=== PATIENT | female | born 1995 | race Hispanic/Latino ===

== ENCOUNTER 2025-09-04 21:32 | Inpatient (IN) | payer MEDICAID, SELFPAY ==
[2025-09-04 22:45] VITALS: BMI 33.5
[2025-09-04 22:49] LABS: Fetal Membranes Rupture RUPTURE DETECTED (No Rupture)
[2025-09-04] MEDS ORDERED: hydrALAZINE 20 MG/ML VIAL SLOW IVP PRN ×2 (23:20)
[2025-09-04] MEDS ORDERED: Ondansetron PF 4 MG/2 ML Vial IVP PRN (23:20)
[2025-09-04] MEDS ORDERED: Lidocaine 1% (PF) 30 ML VIAL SC PRN (23:20)
[2025-09-04] MEDS ORDERED: Diphenoxylate HCl/Atropine Tablet PO PRN ×2 (23:22)
[2025-09-04] MEDS ORDERED: Acetaminophen 500 MG TAB PO PRN (23:22)
[2025-09-04] MEDS ORDERED: HYDROcodone/Acetaminophen 5/325 mg Tablet PO PRN (23:22)
[2025-09-04] MEDS ORDERED: Tranexamic Acid 1,000 MG/10 ML VIAL IVP PRN (23:22)
[2025-09-04] MEDS ORDERED: Carboprost 250 MCG/ML AMP IM PRN (23:22)
[2025-09-04 23:30] LABS: Hematocrit 39.6 % (34.9-44.5); Hemoglobin 13.3 g/dL (12.0-15.5); Mean Corpuscular Hemoglobin 29.3 pg (27.0-33.0); Mean Corpuscular Volume 87.2 fL (81.6-98.3); Platelet Count 226 10x3/uL (150-450); Red Blood Cell (RBC) Count 4.54 10x6/uL (3.90-5.03); White Blood Cell (WBC) Count 12.58 10x3/uL (3.5-10.5)
[2025-09-04] MEDS ORDERED: Oxytocin 30 units/NS 500 ML 500 ML IV SCH (23:30)
[2025-09-05 00:01] LABS: Syphilis Antibody Index 0.08 S/CO (<1.00 Non-Reactive)
[2025-09-05 00:03] LABS: Hep B Surf Ag - L&D Non-Reactive S/CO (NonReactive)
[2025-09-05] MEDS: Oxytocin 30 units/NS 500 ML 500 ML IV SCH ×2 (00:51→20:26)
[2025-09-05] MEDS: fentaNYL/Ropivacaine Epidural 100 ML ONE (06:22)
[2025-09-05] MEDS ORDERED: diphenhydrAMINE 50 MG/ML VIAL IVP PRN (06:49)
[2025-09-05] MEDS ORDERED: Ondansetron PF 4 MG/2 ML Vial IVP PRN (06:49)
[2025-09-05] MEDS ORDERED: Communication Order-Pharmacy FS SCH (07:00)
[2025-09-05] MEDS: fentaNYL 2 mcg/Ropivacaine 0.2% Epidural 100 ML CADD EPIDURAL SCH (17:45)
[2025-09-05] MEDS: Methylergonovine 0.2 MG/ML VIAL IM PRN (20:01)
[2025-09-05] MEDS: Ibuprofen 800 MG TAB PO PRN (20:20)
[2025-09-05] MEDS: Acetaminophen 325 MG TAB PO PRN (20:20)
[2025-09-05] MEDS ORDERED: hydrALAZINE 20 MG/ML VIAL SLOW IVP PRN (23:06)
[2025-09-05] MEDS ORDERED: diphenhydrAMINE 25 MG CAP PO PRN (23:06)
[2025-09-05] MEDS ORDERED: Bisacodyl 10 MG SUPP PR PRN (23:06)
[2025-09-05] MEDS ORDERED: Milk Of Magnesia 30 ML UDCUP PO PRN (23:06)
[2025-09-05] MEDS ORDERED: Methylergonovine 0.2 MG/ML VIAL IM PRN (23:06)
[2025-09-05] MEDS ORDERED: Lanolin Ointment 7 GM TUBE TOP PRN (23:06)
[2025-09-05] MEDS ORDERED: Oxytocin 30 units/NS 500 ML 500 ML IV SCH (23:30)
[2025-09-06] MEDS: HYDROcodone/Acetaminophen 5/325 mg Tablet PO SCH (00:52)
[2025-09-06] MEDS: Ibuprofen 800 MG TAB PO SCH (05:57)
[2025-09-06] MEDS: Ferrous Sulfate 325 MG TAB PO SCH (09:22)
[2025-09-06 14:22] LABS: HIV (1/2) Antibody/Antigen Non-Reactive (NonReactive); HIV 1/2 INDEX 0.12 S/CO (<1.00)
[2025-09-06 18:12] LABS: Hep C IgG Ab NONREACTIVE S/CO (NonReactive); Hep C Index 0.07 S/CO (0-0.79)
[2025-09-07] MEDS: Benzocaine-Menthol 82.5 ML CAN TOP PRN (09:30)
[2025-09-07 15:40] VITALS: TEMP 98.2
[2025-09-08 08:12] VITALS: BP 130/76
== END 2025-09-08 13:30 | disposition home or self-care (01) | DRG 805 ==
LOC: CSHLD/OP 21:32 → CSHLD 23:26 → CSHPP 09-05 23:10
PROVIDERS: ADMIT Obstetrics & Gynecology; ATTEND Obstetrics & Gynecology
PROC: 10E0XZZ Delivery of Products of Conception, External Approach (ICD-10-PCS; principal; 2025-09-05)
PROC: 0KQM0ZZ Repair Perineum Muscle, Open Approach (ICD-10-PCS; 2025-09-05)
PROC: 4A1HXCZ Monitoring of Products of Conception, Cardiac Rate, External Approach (ICD-10-PCS; 2025-09-05)
PROC: 10907ZC Drainage of Amniotic Fluid, Therapeutic from Products of Conception, Via Natural or Artificial Opening (ICD-10-PCS; 2025-09-05)
PROC: 3E03329 Introduction of Other Anti-infective into Peripheral Vein, Percutaneous Approach (ICD-10-PCS; 2025-09-05)
DX: O42.02 Full-term premature rupture of membranes, onset of labor within 24 hours of rupture (principal); O41.1030 Infection of amniotic sac and membranes, unspecified, third trimester, not applicable or unspecified; Z37.0 Single live birth; Z3A.38 38 weeks gestation of pregnancy; O70.1 Second degree perineal laceration during delivery; O77.0 Labor and delivery complicated by meconium in amniotic fluid; Z79.82 Long term (current) use of aspirin; Z79.899 Other long term (current) drug therapy; O69.81X0 Labor and delivery complicated by cord around neck, without compression, not applicable or unspecified
CPT/HCPCS: 36415; 51702; 84112; 85027; 86780; 86803; 86850; 86900; 86901; 87340; 87389; 99285; J0295; J2210; J2590; J3490